=== PATIENT | male | born 1975 | race Caucasian/White ===

== ENCOUNTER 2022-04-06 20:35 | Emergency (ER) | payer MEDICAID ==
[~2022-04-06] VITALS: Ht 175.3 cm; Wt 79.4 kg
--- NOTE | 2022-04-06 20:56 | NUR ---
After being triaged, patient was placed back in the waiting room due to no beds available in the ER.
--- NOTE | 2022-04-06 22:25 | NUR ---
Placed in room 2A at this time.
--- NOTE | 2022-04-06 22:45 | NUR ---
seen and examined by Dr. Carvajal accompanied by Alpha for hebrew translation
[2022-04-06] MEDS ORDERED: HYDR453. TP (23:07)
--- NOTE | 2022-04-06 23:23 | NUR ---
Patient discharged to home in stable condition. Written and verbal after care instructions given. Patient verbalizes understanding of instructions. Stressed follow up or return to ER for worsening s/s.
[2022-04-06 23:29] VITALS: BP 112/80
== END 2022-04-06 23:30 | disposition home or self-care (01) ==
LOC: ER 20:44
DX: R21 Rash and other nonspecific skin eruption (principal); R03.0 Elevated blood-pressure reading, without diagnosis of hypertension
CPT/HCPCS: A4663